=== PATIENT | male | born 1990 | race African-American/Black ===

== ENCOUNTER 2018-03-06 10:46 | Emergency (ER) | payer SELFPAY ==
[2018-03-06] MEDS ORDERED: HYDROCODONE/APAP 7.5/325 MG TAB ONE (11:17)
[2018-03-06] MEDS ORDERED: FAMOTIDINE 20 MG TAB ONE (11:17)
--- NOTE | 2018-03-06 11:38 | RAD REPORT ---
EXAM DESCRIPTION: RAD - Hand Right 3 View - 03/06/2018 11:29 am CLINICAL HISTORY: Pain;Smash injury COMPARISON: No comparisons FINDINGS: Soft tissue swelling is seen along the dorsum of the hand at the level of the MCP joints. No acute fracture or dislocation is identified.
--- NOTE | 2018-03-06 11:38 | ER ---
Nurse's Notes [facility] Name: Louise Ferreira Age: 27 yrs Sex: Male : 1990 Arrival Date: 03/06/2018 Time: 10:50 Bed 13 Private MD: None, None Diagnosis: Contusion of right hand Presentation: 03/06 10:54 Presenting complaint: Patient states: right hand injury today. Hand got caught in a sv door at work. Transition of care: patient was not received from another setting of care. Onset of symptoms was March 06, 2018. Care prior to arrival: None. 10:54 Method Of Arrival: Ambulatory sv 10:54 Acuity: ANDRADE 3 sv 11:09 Risk Assessment: Do you want to hurt yourself or someone else? Patient reports no jl7 desire to harm self or others. Initial Sepsis Screen: Does the patient meet any 2 criteria? No. Patient's initial sepsis screen is negative. Does the patient have a suspected source of infection? No. Patient's initial sepsis screen is negative. Historical: - Allergies: 10:58 NKDA; sv - Home Meds: 10:58 None [Active]; sv - PMHx: 10:58 None; sv - PSHx: 10:58 Hernia repair; sv - Immunization history:: Adult Immunizations up to date. - Social history:: Smoking status: Patient uses tobacco products, smokes one-half pack cigarettes per day, Patient uses alcohol, occasionally. - Ebola Screening: : No symptoms or risks identified at this time. Screenin:06 Abuse screen: Denies threats or abuse. Denies injuries from another. Nutritional jl7 screening: No deficits noted. Tuberculosis screening: No symptoms or risk factors identified. Fall Risk None identified. Assessment: 11:06 General: Appears in no apparent distress. uncomfortable, Behavior is calm, cooperative, jl7 appropriate for age. Pain: Complains of pain in dorsum of right hand Pain currently is 7 out of 10 on a pain scale. at worst was 10 out of 10 on a pain scale. Pain began 4 hours ago. Is continuous, Alleviated by rest, Aggravated by repositioning, Noted to be grimacing, moaning. Neuro: Level of Consciousness is awake, alert, obeys commands. Cardiovascular: Patient's skin is warm and dry. Respiratory: Airway is patent Respiratory effort is even, unlabored, Respiratory pattern is regular, symmetrical. Derm: Skin is dry, Skin is normal, Skin temperature is warm. Musculoskeletal: Swelling present in dorsum of right hand. Vital Signs: 10:58 BP 135 / 91; Pulse 84; Resp 18; Temp 98.5; Pulse Ox 100% ; Weight 63.5 kg; Height 5 ft. sv 7 in. (170.18 cm); Pain 7/10; 11:30 BP 136 / 98; Pulse 83; Resp 16; Pulse Ox 100% on R/A; jl7 10:58 Body Mass Index 21.93 (63.50 kg, 170.18 cm) sv ED Course: 10:50 Patient arrived in ED. sb2 10:50 None, None is Private Physician. sb2 10:54 Arm band placed on right wrist. Patient placed in an exam room, on a stretcher. sv 10:58 Triage completed. sv 11:01 Saud Mcmillan RN is Primary Nurse. jl7 11:05 Har[facility]. snw 11:06 Jamil Alva MD is Attending Physician. snw 11:06 Patient has correct armband on for positive identification. Bed in low position. Call jl7 light in reach. Side rails up X 1. Pulse ox on. NIBP on. Ice pack to injury. 11:29 X-ray completed. Portable x-ray completed in exam room. Patient tolerated procedure mh1 well. 11:30 Hand Right 3 View XRAY In Process Unspecified. EDMS 11:30 No provider procedures requiring assistance completed. Patient did not have IV access jl7 during this emergency room visit. Administered Medications: 11:14 Drug: [place] (7.5 mg-325 mg) 1 tabs Route: PO; jl7 11:45 Follow up: Response: No adverse reaction; Pain is decreased jl7 11:15 Drug: Pepcid 20 mg Route: PO; jl7 11:47 Follow up: Response: No adverse reaction jl7 Outcome: 11:30 Discharged to home ambulatory. jl7 11:30 Condition: stable 11:30 Discharge instructions given to patient, family, Instructed on discharge instructions, follow up and referral plans. medication usage, Demonstrated understanding of instructions, follow-up care, medications, Prescriptions given X 1. 11:38 Discharge ordered by . snw 11:46 Patient left the ED. jl7 Signatures: Dispatcher [employer] Marian Bull, RN Harriett Peck, COSTUME MISTRESS-C COSTUME MISTRESS-Csnw Verenice Sanchez 1 Saud Mcmillan RN RN jl7 Whitney Renae sb2
--- NOTE | 2018-03-06 11:38 | EDPHYS ---
Physician Documentation [facility] Name: Louise Ferreira Age: 27 yrs Sex: Male : 1990 Arrival Date: 03/06/2018 Time: 10:50 Bed 13 Private MD: None, None ED Physician Jamil Alva HPI: 03/06 11:34 This 27 yrs old Black Male presents to ER via Ambulatory with complaints of Hand Injury.snw 11:34 The patient or guardian reports a contusion, decreased range of motion, swelling. The snw complaints affect the right hand diffusely. Context: resulted from a crush injury, heavy door. Onset: The symptoms/episode began/occurred suddenly, today. Associated signs and symptoms: The patient has no apparent associated signs or symptoms. Severity of symptoms: At their worst the symptoms were moderate. The patient has not experienced similar symptoms in the past, but family has similar symptoms. The patient has not recently seen a physician. Historical: - Allergies: 10:58 NKDA; sv - Home Meds: 10:58 None [Active]; sv - PMHx: 10:58 None; sv - PSHx: 10:58 Hernia repair; sv - Immunization history:: Adult Immunizations up to date. - Social history:: Smoking status: Patient uses tobacco products, smokes one-half pack cigarettes per day, Patient uses alcohol, occasionally. - Ebola Screening: : No symptoms or risks identified at this time. ROS: 11:33 Constitutional: Negative for fever, chills, and weight loss, Eyes: Negative for injury, snw pain, redness, and discharge, ENT: Negative for injury, pain, and discharge, Neck: Negative for injury, pain, and swelling, Cardiovascular: Negative for chest pain, palpitations, and edema, Respiratory: Negative for shortness of breath, cough, wheezing, and pleuritic chest pain, Abdomen/GI: Negative for abdominal pain, nausea, vomiting, diarrhea, and constipation, Back: Negative for injury and pain, : Negative for injury, bleeding, discharge, and swelling, Skin: Negative for injury, rash, and discoloration, Neuro: Negative for headache, weakness, numbness, tingling, and seizure. 11:33 MS/extremity: Positive for contusion, decreased range of motion, pain, swelling, tenderness, of the dorsum of right hand. Exam: 11:09 Constitutional: This is a well developed, well nourished patient who is awake, alert, snw and in no acute distress. Head/Face: Normocephalic, atraumatic. Eyes: Pupils equal round and reactive to light, extra-ocular motions intact. Lids and lashes normal. Conjunctiva and sclera are non-icteric and not injected. Cornea within normal limits. Periorbital areas with no swelling, redness, or edema. ENT: Nares patent. No nasal discharge, no septal abnormalities noted. Tympanic membranes are normal and external auditory canals are clear. Oropharynx with no redness, swelling, or masses, exudates, or evidence of obstruction, uvula midline. Mucous membranes moist. Neck: Trachea midline, no thyromegaly or masses palpated, and no cervical lymphadenopathy. Supple, full range of motion without nuchal rigidity, or vertebral point tenderness. No Meningismus. Chest/axilla: Normal chest wall appearance and motion. Nontender with no deformity. No lesions are appreciated. Cardiovascular: Regular rate and rhythm with a normal S1 and S2. No gallops, murmurs, or rubs. Normal PMI, no JVD. No pulse deficits. Respiratory: Lungs have equal breath sounds bilaterally, clear to auscultation and percussion. No rales, rhonchi or wheezes noted. No increased work of breathing, no retractions or nasal flaring. Abdomen/GI: Soft, non-tender, with normal bowel sounds. No distension or tympany. No guarding or rebound. No evidence of tenderness throughout. Back: No spinal tenderness. No costovertebral tenderness. Full range of motion. Skin: Warm, dry with normal turgor. Normal color with no rashes, no lesions, and no evidence of cellulitis. Neuro: Awake and alert, GCS 15, oriented to person, place, time, and situation. Cranial nerves II-XII grossly intact. Motor strength 5/5 in all extremities. Sensory grossly intact. Cerebellar exam normal. Normal gait. Psych: Awake, alert, with orientation to person, place and time. Behavior, mood, and affect are within normal limits. 11:09 Musculoskeletal/extremity: ROM: limited active range of motion due to pain, limited passive range of motion due to pain, Circulation is intact in all extremities. Sensation intact. Compartment Syndrome exam of affected extremity: is normal. dorsum of distal 4th and 5th metacarpals with deformity. Vital Signs: 10:58 BP 135 / 91; Pulse 84; Resp 18; Temp 98.5; Pulse Ox 100% ; Weight 63.5 kg; Height 5 ft. sv 7 in. (170.18 cm); Pain 7/10; 11:30 BP 136 / 98; Pulse 83; Resp 16; Pulse Ox 100% on R/A; jl7 10:58 Body Mass Index 21.93 (63.50 kg, 170.18 cm) sv MDM: 11:06 Patient medically screened. snw 11:40 Data reviewed: vital signs, nurses notes. Data interpreted: Pulse oximetry: on room air snw is 100 %. Interpretation: normal. Counseling: I had a detailed discussion with the patient and/or guardian regarding: the historical points, exam findings, and any diagnostic results supporting the discharge/admit diagnosis, the presence of at least one elevated blood pressure reading (>120/80) during this emergency department visit, radiology results, the need for outpatient follow up, to return to the emergency department if symptoms worsen or persist or if there are any questions or concerns that arise at home. Special discussion: I have referred the patient to see his PCP for further evaluation of high blood pressure. Based on the history and exam findings, there is no indication for further emergent testing or inpatient evaluation. I discussed with the patient/guardian the need to see the primary care provider for further evaluation of the symptoms. 03/06 11:09 Order name: Hand Right 3 View XRAY; Complete Time: 11:41 snw Administered Medications: 11:14 Drug: [place] (7.5 mg-325 mg) 1 tabs Route: PO; jl7 11:45 Follow up: Response: No adverse reaction; Pain is decreased jl7 11:15 Drug: Pepcid 20 mg Route: PO; jl7 11:47 Follow up: Response: No adverse reaction jl7 Disposition: 03/07 08:17 Co-signature as Attending Physician, Jamil Alva MD I agree with the assessment and wa plan of care. Disposition: 03/06/18 11:38 Discharged to Home. Impression: Contusion of right hand. - Condition is Stable. - Discharge Instructions: Hand Contusion, Cryotherapy. - Prescriptions for Diclofenac Sodium 75 mg Oral Tablet Sustained Release - take 1 tablet by ORAL route 2 times per day; 30 tablet. - Work release form, Medication Reconciliation Form, Thank You Letter, Antibiotic Education, Prescription Opioid Use form. - Follow up: Private Physician; When: 2 - 3 days; Reason: Recheck today's complaints, Continuance of care, Re-evaluation by your physician. Follow up: Emergency Department; When: As needed; Reason: Worsening of condition. Signatures: Dispatcher [employer] Marian Bull, MEL LEAL Harriett James, RELAY MAN-C RELAY MAN-Csnw Saud Mcmillan RN RN jl7 Jamil Alva MD MD wa Corrections: (The following items were deleted from the chart) 03/06 11:46 11:38 03/06/2018 11:38 Discharged to Home. Impression: Contusion of right hand. jl7 Condition is Stable. Forms are Medication Reconciliation Form, Thank You Letter, Antibiotic Education, Prescription Opioid Use. Follow up: Private Physician; When: 2 - 3 days; Reason: Recheck today's complaints, Continuance of care, Re-evaluation by your physician. Follow up: Emergency Department; When: As needed; Reason: Worsening of condition. snw
== END 2018-03-06 11:46 | disposition home or self-care (01) ==
LOC: ER 10:46
DX: S67.21XA Crushing injury of right hand, initial encounter (principal); W23.0XXA Caught, crushed, jammed, or pinched between moving objects, initial encounter; Y93.89 Activity, other specified; Y92.810 Car as the place of occurrence of the external cause; Y99.0 Civilian activity done for income or pay; F17.210 Nicotine dependence, cigarettes, uncomplicated
CPT/HCPCS: 99284